=== PATIENT | male | born 1940 | race Caucasian/White ===

== ENCOUNTER → 2020-11-10 | Outpatient (CLI) | payer MEDICARE, BC ==
[~2020-11-10] MED LIST: ASCO100018 PO; CA C1TAB62 PO; CANN100S PO; CARV6.252 PO; CINN500C2 PO; FINA5TAB4 PO; FURO20TA3 PO; GLUC500T11 PO; LEVO75TA5 PO; LOSA100T14 PO; MELO15TA24 PO; MULT-717 PO; ONDA8TAB9 PO; OXYB10TA26 PO; POTA20TA89 PO; TAMS-11 PO; TIMO5DRO39 OP; TRAM50TA2 PO; TRIA1CAP3 PO; TURM500C4 PO; VITA100C10 PO
== END | disposition home or self-care (01) ==
LOC: CFH 16:02
PROVIDERS: ATTEND Internal Medicine Hematology & Oncology
DX: C92.00 Acute myeloblastic leukemia, not having achieved remission (principal)
CPT/HCPCS: 93970